=== PATIENT | male | born 1955 | race Caucasian/White ===

== ENCOUNTER 2020-06-28 08:04 | Day surgery (SDC) | payer OTHER, SELFPAY ==
[~2020-06-28] VITALS: Ht 170.2 cm; Wt 88.9 kg
[2020-06-28 08:30] LABS: BASOPHILS # (AUTO) 0.1 K/uL (0.00-0.22); BASOPHILS % (AUTO) 1.1 % (0.0-2.0); EOSINOPHILS # (AUTO) 0.2 K/uL (0-0.4); EOSINOPHILS % (AUTO) 3.3 % (0.0-4.0); HEMATOCRIT 44.9 % (36-52); HEMOGLOBIN 14.9 g/dL (12.0-18.0); LYMPHOCYTES # (AUTO) 1.9 K/uL (2.0-11.5); LYMPHOCYTES % (AUTO) 30.4 % (20.5-51.1); MEAN CORPUSCULAR HEMOGLOBIN 30 pg (27-31); MEAN CORPUSCULAR HGB CONC 33 g/dL (33-37); MEAN CORPUSCULAR VOLUME 90.3 fL (80-94); MONOCYTES # (AUTO) 0.6 K/uL (0.8-1.0); MONOCYTES % (AUTO) 9.2 % (1.7-9.3); NEUTROPHILS # (AUTO) 3.4 K/uL (1.8-7.7); PLATELET COUNT (AUTO) 269 K/uL (140-450); RED BLOOD CELL COUNT(AUTO) 4.97 MIL/uL (4.20-6.10); RED CELL DISTRIBUTION WIDTH 13.7 % (11.6-13.7); WHITE BLOOD COUNT (AUTO) 6.1 K/uL (4.8-10.8)
[2020-06-28 08:46] LABS: PROTHROMBIN TIME 9.6 secs (10.8-13.4)
[2020-06-28] MEDS ORDERED: fentaNYL citrate 0.05 MG/ML VIAL ONE (11:56)
[2020-06-28] MEDS ORDERED: LIDOCAINE 2% 1000 MG/50 ML VIAL INJ ONE (11:56)
[2020-06-28] MEDS ORDERED: fentaNYL citrate 0.05 MG/ML VIAL IVP ONE (15:20)
== END 2020-06-28 14:05 | disposition home or self-care (01) ==
LOC: MMU 08:04 → MDS 08:04
PROVIDERS: ATTEND Internal Medicine Gastroenterology
DX: K76.0 Fatty (change of) liver, not elsewhere classified (principal); R94.5 Abnormal results of liver function studies; E78.5 Hyperlipidemia, unspecified; I10 Essential (primary) hypertension; Z87.891 Personal history of nicotine dependence; Z79.899 Other long term (current) drug therapy; E66.9 Obesity, unspecified; Z68.31 Body mass index [BMI] 31.0-31.9, adult; Z20.828 Contact with and (suspected) exposure to other viral communicable diseases
CPT/HCPCS: 36415; 47000; 76942; 85025; 85610; 85730; J2001; J3010; Q0092; U0003; 88307; 88313